=== PATIENT | male | born 1970 | race African-American/Black ===

== ENCOUNTER 2019-02-13 07:31 | Emergency (ER) | payer SELFPAY ==
[~2019-02-13] VITALS: Ht 170.2 cm; Wt 68.0 kg
[2019-02-13] MEDS ORDERED: KETOROLAC 60MG/2ML VIAL IM ONE (08:00)
[2019-02-13] MEDS ORDERED: DIAZEPAM 5 MG TABLET PO ONE (08:00)
[2019-02-13 09:54] VITALS: BP 122/84
== END 2019-02-13 10:02 | disposition home or self-care (01) ==
LOC: ER 07:31
DX: S16.1XXA Strain of muscle, fascia and tendon at neck level, initial encounter (principal); S13.4XXA Sprain of ligaments of cervical spine, initial encounter; S46.912A Strain of unspecified muscle, fascia and tendon at shoulder and upper arm level, left arm, initial encounter; V89.2XXA Person injured in unspecified motor-vehicle accident, traffic, initial encounter; Y93.89 Activity, other specified; Y92.89 Other specified places as the place of occurrence of the external cause; Y99.8 Other external cause status
CPT/HCPCS: 72040; 73030; 96372; 99283; J1885